=== PATIENT | male | born 1980 | race Caucasian/White ===

== ENCOUNTER 2017-06-01 03:13 | Emergency (ER) | payer SELFPAY ==
[~2017-06-01] VITALS: Ht 160 cm; Wt 68.0 kg
--- NOTE | 2017-06-01 07:39 | NUR ---
Patient discharged to home in stable condition. Written and verbal after care instructions given. Patient verbalizes understanding of instruction.
[2017-06-01 07:42] VITALS: BP 150/100
--- NOTE | 2017-06-01 07:42 | NUR ---
pt ambulatory on steady gait
== END 2017-06-01 07:43 | disposition home or self-care (01) ==
LOC: ER 03:15
DX: F10.129 Alcohol abuse with intoxication, unspecified (principal)
CPT/HCPCS: 82962; 99283; A4606; Z7610